=== PATIENT | male | born 1960 | race Caucasian/White ===

== ENCOUNTER 2023-06-05 07:15 | Outpatient (CLI) | payer OTHER, SELFPAY ==
--- NOTE | 2023-06-05 07:15 | CRLHL7_ITS ---
For Patients: As a result of the 21st Century Cures Act, medical imaging exams and procedure reports are released immediately into your electronic medical record. You may view this report before your referring provider. If you have questions, please contact your health care provider. Indication: Cervical radiculopathy Technique: Multiplanar, multisequence MRI of the cervical spine obtained without contrast. Comparison: No relevant comparison studies available at this institution. Findings: Artifact degrades image quality. Please note that the axial sequences reference line is in accurately registered on the sagittal sequences, off by approximately one vertebral level. Straightening of the normal cervical lordosis. No significant spondylolisthesis. No evidence of acute osseous abnormality. Moderate articular pillar edema at the left C3-4 facet joint, with trace joint effusion. Otherwise, unremarkable bone marrow signal. Included posterior fossa structures are unremarkable. The visualized spinal cord appears normal in course, caliber, and intrinsic signal. There is baseline narrowing of the spinal canal, secondary to congenitally short pedicles. No suspicious findings identified in the paraspinal soft tissues. C2-C3: Left posterolateral endplate ridging. No right, mild left neural foraminal narrowing. No spinal canal stenosis. C3-C4: Posterior disc-osteophyte complex, left asymmetric uncovertebral and facet arthropathy. Mild right, moderate left neural foraminal stenosis. Mild spinal canal narrowing. C4-C5: Right asymmetric uncovertebral and facet arthropathy. No left, mild right neural foraminal narrowing. Mild spinal canal narrowing. C5-C6: Posterior disc-osteophyte complex, uncovertebral arthropathy. Mild left, moderate right neural foraminal stenosis. Moderate spinal canal stenosis. C6-C7: Left asymmetric uncovertebral arthropathy. Mild right, moderate left neural foraminal stenosis. Mild spinal canal narrowing. C7-T1: Posterolateral endplate ridging. Moderate bilateral neural foraminal stenosis. No spinal canal stenosis. Impression: 1. 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 2. Moderate articular pillar edema at the left C3-4 facet joint with trace joint effusion, compatible with inflammatory/stress reaction from facet arthropathy. 3. At C3-4, moderate left neural foraminal stenosis. 4. At C5-6, moderate right neural foraminal stenosis, and moderate spinal canal stenosis. 5. At C6-7, moderate left neural foraminal stenosis. 6. At C7-T1, moderate bilateral neural foraminal stenosis. 7. Additional mild neural foraminal and mild spinal canal narrowing elsewhere as detailed. Dictated by Twyla Montano MD @ 06/05/2023 11:36:24 AM (Electronically Signed)
== END 2023-06-05 07:16 | disposition home or self-care (01) ==
LOC: MRI 07:17
PROVIDERS: PCP Family Medicine; Visit Provider Family Medicine
DX: M54.12 Radiculopathy, cervical region (principal); M48.02 Spinal stenosis, cervical region; M47.892 Other spondylosis, cervical region; M48.03 Spinal stenosis, cervicothoracic region
CPT/HCPCS: 72141

== ENCOUNTER 2025-07-08 06:19 | Outpatient (CLI) | payer MEDICARE, BC, SELFPAY ==
--- NOTE | 2025-07-08 07:55 | P.ANES_ITS ---
Anesthesia Charges Start Date/Time Anesthesia Start Date: 07/08/25 Anesthesia Start Time: 07:23 Stop Date/Time Anesthesia Stop Date: 07/08/25 Anesthesia Stop Time: 07:57 Coding CPT Codes CPT Codes: ANES LWR INTST NDSC NOS - [id number] ([id number]) QX - IT RISK AND ASSURANCE SENIOR MANAGER SVC W/ MD MED DIRECTION, QK - MECHANICAL PLANNER 2-4 CNCRNT ANES PROC, P3 - PATIENT W/SEVERE SYS DISEASE
--- NOTE | 2025-07-08 07:55 | W.ANESCHARGE ---
Anesthesia Charges Start Date/Time Anesthesia Start Date: 07/08/25 Anesthesia Start Time: 07:23 Stop Date/Time Anesthesia Stop Date: 07/08/25 Anesthesia Stop Time: 07:57 Coding CPT Codes CPT Codes: ANES LWR INTST NDSC NOS - [id number] ([id number]) QX - LIQUID LOADER SVC W/ MD MED DIRECTION, QK - ASSOCIATE SOFTWARE ENGINEER 2-4 CNCRNT ANES PROC, P3 - PATIENT W/SEVERE SYS DISEASE
--- NOTE | 2025-07-08 08:00 | P.ANES_ITS ---
Anesthesia Charges Start Date/Time Anesthesia Start Date: 07/08/25 Anesthesia Start Time: 07:23 Stop Date/Time Anesthesia Stop Date: 07/08/25 Anesthesia Stop Time: 07:57 Coding CPT Codes CPT Codes: ANES LWR INTST NDSC NOS - [id number] ([id number]) P3 - PATIENT W/SEVERE SYS DISEASE, QK - DIRECTOR OF VIDEO ANALYTICS 2-4 CNCRNT ANES PROC, QX - GERIATRIC NURSE PRACTITIONER SVC W/ MD MED DIRECTION
--- NOTE | 2025-07-08 08:00 | W.ANESCHARGE ---
Anesthesia Charges Start Date/Time Anesthesia Start Date: 07/08/25 Anesthesia Start Time: 07:23 Stop Date/Time Anesthesia Stop Date: 07/08/25 Anesthesia Stop Time: 07:57 Coding CPT Codes CPT Codes: ANES LWR INTST NDSC NOS - [id number] ([id number]) P3 - PATIENT W/SEVERE SYS DISEASE, QK - HABILITATION TRAINING SPECIALIST 2-4 CNCRNT ANES PROC, QX - EVAPORATOR HELPER SVC W/ MD MED DIRECTION
== END 2025-07-08 06:20 | disposition home or self-care (01) ==
PROVIDERS: PCP Family Medicine; Visit Provider Internal Medicine Gastroenterology
DX: Z12.11 Encounter for screening for malignant neoplasm of colon (principal); D12.2 Benign neoplasm of ascending colon; D12.3 Benign neoplasm of transverse colon; D17.5 Benign lipomatous neoplasm of intra-abdominal organs
CPT/HCPCS: 00811; 00812; 45385; J2704